=== PATIENT | male | born 1980 | race Caucasian/White ===

== ENCOUNTER 2021-12-29 19:50 | Emergency (ER) | payer MEDICAID, OTHER ==
[~2021-12-29] VITALS: Ht 177.8 cm; Wt 74.8 kg
--- NOTE | 2021-12-29 20:33 | NUR ---
BIBSELF C/O CP RAD TO LEFT ARM X 1 WEEK FELT WORSE TODAY. PT AWAKE AND ALERT BREATHING EVEN AND UNLABORED. AMBULATORY WITH STEADY GAIT. PLACED ON CAR SEAT MAKER AND PULSE OX V/S WNL. DIAZ WAS AT BEDSIDE FOR EVAL.
--- NOTE | 2021-12-29 20:49 | NUR ---
WIG MAKER AT PT'S BEDSIDE
--- NOTE | 2021-12-29 20:57 | NUR ---
20G IV LINE ESTABLISHED LAC. BLOOD DRAWN AND SENT TO LAB
[2021-12-29 21:22] LABS: BASOPHILS % (AUTO) 0.3 % (0.0-2.0); EOSINOPHILS % (AUTO) 1.6 % (0.0-6.0); HEMATOCRIT 45 % (39-51); HEMOGLOBIN 15.1 g/dL (13.5-17.5); LYMPHOCYTES # (AUTO) 2.4 K/uL (0.8-4.8); LYMPHOCYTES % (AUTO) 31.5 % (20.0-44.0); MEAN CORPUSCULAR HGB CONC 34 g/dl (31.0-36.0); MEAN CORPUSCULAR VOLUME 89 fL (80-96); MONOCYTES # (AUTO) 0.6 K/uL (0.1-1.30); MONOCYTES % (AUTO) 7.2 % (2.0-12.0); NEUTROPHILS # (AUTO) 4.6 K/uL (1.8-8.9); NEUTROPHILS % (AUTO) 59.4 % (43.0-81.0); PLATELET COUNT (AUTO) 187 K/uL (150-450); RED BLOOD CELL COUNT(AUTO) 5.04 MIL/uL (4.5-6.0); WHITE BLOOD COUNT (AUTO) 7.7 K/uL (4.3-11.0)
[2021-12-29 21:39] LABS: CALCIUM, SERUM 9.1 mg/dL (8.5-10.1); CARBON DIOXIDE 30 mmol/L (21-32); CHLORIDE 103 mmol/L (98-107); CREATININE 0.9 mg/dL (0.6-1.3); GLUCOSE 99 mg/dL (74-106); SODIUM SERUM 142 mmol/L (136-145); UREA NITROGEN, BLOOD 17 mg/dL (7-18)
--- NOTE | 2021-12-30 00:03 | NUR ---
Patient discharged to home in stable condition. Written and verbal after care instructions given. Patient verbalizes understanding of instruction.Patient discharged to home in stable condition. Written and verbal after care instructions given. Patient verbalizes understanding of instruction.
[2021-12-30 00:05] VITALS: BP 121/70
== END 2021-12-30 00:05 | disposition home or self-care (01) ==
LOC: ER 19:57
DX: R07.89 Other chest pain (principal); R42 Dizziness and giddiness; Z60.2 Problems related to living alone
CPT/HCPCS: 36415; 70450-TC; 71045-TC; 80048-TC; 84484-TC; 85025-TC